=== PATIENT | female | born 1950 | race Caucasian/White ===

== ENCOUNTER → 2021-04-29 | Outpatient (CLI) | payer MEDICARE ==
--- NOTE | 2021-05-02 21:01 | HOLTMON ---
[facility] Test Date: 2021-04-29 Pat Name: JAD GROSS Department: Room: - Gender: Female Lighting Designer: KELSEY : 1950 Requested By: JOELLEN Campbell Order Number: [id number] Reading : Jonatan Houser Interpretive Statements Test Date: 2021-04-29 10:10:51 Pat Name: JAD GROSS Department: ?? Gender: Female Lighting Designer: KELSEY : 1950 Requested by: JOELLEN Lees MD: Jonatan Houser Interpretive Statements 1) The quality of the scan was acceptable but with signifcant artifact. 2) The patient was in sinus rhythm, rates at 54-120 bpm, average 80 bpm 3) Ventricular ectopic beats consisted of 15,647 beats, including 35 couplets, no bigeminy/trigeminy, and no ventricular runs. 4) Supraventricular ectopic beats consisted of 34 singlet PACs. 5) The longest drop/late beat was 1.5 seconds. 6) Symptoms reported: palpitations were associated with minimal tachycardia and pvc's. Given the frequency of pvc's I would expect more symptoms reported. Diagnosis: Frequent PVCs Electronically Signed on 05-02-2021 21:01:27 EDT by Jonatan Houser
--- NOTE | 2021-05-03 11:39 | ECHO ---
ECHOCARDIOGRAM DATE OF PROCEDURE: 04/29/2021 Age: Gender: Female Height: 150 cm Weight: 67 kg REFERRING PHYSICIAN: Jean Paul Boland M.D. INDICATION: Palpitations. MEASUREMENTS: 2D Measurements: Left ventricle diastole 3.9 cm Intraventricular septum 1.06 cm Posterior wall 1.05 cm Aortic root 3.7 cm Left atrium 3.3 cm Proximal ascending aorta 3.7 cm Left atrial volume index 20 Doppler Measurements: No aortic stenosis No aortic regurgitation Aortic valve velocity 124 cm/sec LVOT velocity 117 cm/sec No mitral regurgitation No mitral stenosis Mitral E velocity 66.6 cm/sec Mitral A velocity 103 cm/sec Pulmonary artery systolic pressure 27 mmHg MITRAL ANNULAR TISSUE DOPPLER: E prime septal 6.3 cm/sec E prime lateral 7.2 cm/sec DESCRIPTION: Rhythm was sinus with occasional to frequent premature ventricular contractions (PVCs). Image quality was fair. No pericardial effusion. This was a 2D, M-mode, color flow Doppler and pulse wave Doppler examination and included mitral annular tissue Doppler. CONCLUSIONS: 1. Occasional to frequent premature ventricular contractions (PVCs). 2. Normal left ventricle internal dimensions and wall thickness. Normal regional left ventricular (LV) wall motion and wall thickening. Normal LV systolic function. Left ventricular ejection fraction (LVEF) 65-70% by visual estimate. Grade 1 LV diastolic dysfunction. 3. Mild mitral annular calcification. No mitral regurgitation. 4. Otherwise normal appearing echocardiogram findings.
== END ==
LOC: M CARPUL 08:24
PROVIDERS: ATTEND Internal Medicine
DX: R00.2 Palpitations (principal)

== ENCOUNTER → 2021-05-14 | Outpatient (CLI) | payer MEDICARE ==
--- NOTE | 2021-05-14 16:56 | REPMRS ---
Patient History The patient states she has not had a clinical breast exam in over a year. Patient is postmenopausal and had first child at age 30. No known family history of cancer. No Hormone Replacement Therapy Moderna vaccine 10/10/20 left arm. 11/07/20 left arm. Patient states no breast complaints today. Patient has signed MRS History Sheet. Digital Woman Screen Mammo: May 14, 2021 - Exam #: [id number] Bilateral CC and MLO view(s) were taken. Technologist: RT Loreto Prior study comparison: May 13, 2020, bilateral digital mammo screening bilat, performed at [facility]. May 11, 2019, bilateral digital mammo screening bilat, performed at [facility]. May 10, 2018, bilateral digital mammo screening bilat, performed at [facility]. FINDINGS: There are scattered fibroglandular densities. The Volpara volumetric breast density category is:B. There has been no change in the appearance of the mammogram from the prior studies. There is a mild amount of scattered fibroglandular density which is fairly symmetric. There is no interval development of dominant mass, architectural distortion, or grouped microcalcification suggestive of malignancy. 3-D tomosynthesis shows no additional findings. Assessment: BI-RADS/ACR category 1 mammogram. Negative Mammogram. Recommendation Routine screening mammogram of both breasts in 1 year (for women over age 40). This patient's [facility] Lifetime Breast Cancer Risk is estimated at 5.3 %. This mammogram was interpreted with the aid of an FDA-approved computer-aided dectection system. Electronically Signed By: Michael Cuenca MD 05/14/21 [id number]
== END ==
LOC: M WHC 15:11
PROVIDERS: ATTEND Nurse Practitioner Adult Health
DX: Z12.31 Encounter for screening mammogram for malignant neoplasm of breast (principal)

== ENCOUNTER → 2022-05-17 | Outpatient (CLI) | payer MEDICARE | LOC: M WHC 11:02 | PROVIDERS: ATTEND Nurse Practitioner Adult Health | DX: Z12.31 Encounter for screening mammogram for malignant neoplasm of breast (principal); M85.89 Other specified disorders of bone density and structure, multiple sites ==

== ENCOUNTER → 2023-03-15 | Outpatient (REF) | payer MEDICARE ==
[2023-03-15 13:47] LABS: APPEARANCE, URINE HAZY (CLEAR); BACTERIA, URINE AUTO NEGATIVE (NEGATIVE); BILIRUBIN, URINE AUTO NEGATIVE (NEGATIVE); BLOOD, URINE BLOOD NEGATIVE (NEGATIVE); COLOR, URINE STRAW (YELLOW); GLUCOSE, URINE (UA) AUTO NEGATIVE (NEGATIVE); KETONE, URINE AUTO NEGATIVE (NEGATIVE); LEUKOCYTE ESTERASE, URINE AUTO 3+ (NEGATIVE); NITRITE, URINE AUTO NEGATIVE (NEGATIVE); PROTEIN, URINE AUTO NEGATIVE (NEGATIVE); RBC, URINE AUTO 0 /HPF (0-3); SPECIFIC GRAVITY URINE AUTO 1.003 (1.002-1.035); SQUAMOUS EPITHELIAL CELL UR AU 0 /HPF (0-6); UROBILINOGEN, URINE AUTO 0.2 mg/dL (0.0-2.0); WBC, URINE AUTO 46 /HPF (0-3)
== END ==
LOC: M LAB REF 13:03
PROVIDERS: ATTEND Internal Medicine
DX: N39.0 Urinary tract infection, site not specified (principal)

== ENCOUNTER → 2023-05-19 | Outpatient (CLI) | payer MEDICARE | LOC: M WHC 08:16 | PROVIDERS: ATTEND Nurse Practitioner Adult Health | DX: Z12.31 Encounter for screening mammogram for malignant neoplasm of breast (principal) ==

== ENCOUNTER → 2024-02-13 | Outpatient (REF) | payer MEDICARE ==
[2024-02-13 16:42] LABS: APPEARANCE, URINE CLOUDY (CLEAR); BACTERIA, URINE AUTO 1+ (NEGATIVE); BILIRUBIN, URINE AUTO NEGATIVE (NEGATIVE); BLOOD, URINE BLOOD 1+ (NEGATIVE); COLOR, URINE YELLOW (YELLOW); GLUCOSE, URINE (UA) AUTO NEGATIVE (NEGATIVE); KETONE, URINE AUTO NEGATIVE (NEGATIVE); LEUKOCYTE ESTERASE, URINE AUTO 3+ (NEGATIVE); NITRITE, URINE AUTO NEGATIVE (NEGATIVE); PROTEIN, URINE AUTO NEGATIVE (NEGATIVE); RBC, URINE AUTO 4 /HPF (0-3); SPECIFIC GRAVITY URINE AUTO 1.008 (1.002-1.035); SQUAMOUS EPITHELIAL CELL UR AU 1 /HPF (0-6); UROBILINOGEN, URINE AUTO 0.2 mg/dL (0.0-2.0); WBC, URINE AUTO TNTC /HPF (0-3)
== END ==
LOC: M LAB REF 16:11
PROVIDERS: ATTEND Nurse Practitioner Adult Health
DX: R30.0 Dysuria (principal)

== ENCOUNTER → 2024-05-21 | Outpatient (CLI) | payer MEDICARE | LOC: M WHC 10:50 | PROVIDERS: ATTEND Nurse Practitioner Adult Health | DX: Z12.31 Encounter for screening mammogram for malignant neoplasm of breast (principal) ==

== ENCOUNTER → 2025-05-22 | Outpatient (CLI) | payer MEDICARE | LOC: M WHC 07:53 | PROVIDERS: ATTEND Nurse Practitioner Adult Health | DX: Z12.31 Encounter for screening mammogram for malignant neoplasm of breast (principal) ==